=== PATIENT | male | born 1965 | race African-American/Black ===

== ENCOUNTER 2018-11-22 14:25 | Emergency (ER) | payer MEDICAID ==
[2018-11-22] MEDS ORDERED: KETOROLAC TROMETHAMINE INJ/PF 30 MG/1 ML SDV IM ONE (15:25)
--- NOTE | 2018-11-22 15:31 | ER Document Report ---
ED Extremity Problem, Lower - General Chief Complaint: Foot Pain Stated Complaint: FOOT PAIN Time Seen by Provider: 11/22/18 15:20 TRAVEL OUTSIDE OF THE [place] IN LAST 30 DAYS: No - HPI Notes: Patient is a 53-year-old male that presents to the emergency department for chief complaint of right foot pain. Patient reports he had amputation of his right fifth digit a few months ago. After his surgery he sustained a fracture in his right midfoot. He was placed in a walking boot. Patient states that he ran out of his Percocet and is here for a refill. He is from [place] and will be in [place] for 10 more days. He denies new injury or trauma to his foot. He denies any redness wounds fevers or chills. Patient states the pain is sharp pain located over the dorsal midfoot where his fracture is. He is not sure exactly what his fracture is. He has been using a cane with his walking boot. He states the pain is only slightly improved with [id number] pain medication and rest. He reports sharp pain when he is trying to ambulate. Past Medical History: Diabetes Past Surgical History: Right fifth toe amputation Social History: Daily tobacco. Denies drugs and alcohol Family History: Reviewed and noncontributory for presenting illness Allergies: Reviewed, see documented allergy list. REVIEW OF SYSTEMS: CONSTITUTIONAL : No fever No chills No diaphoresis No recent illness EENT: No vision changes No congestion No sore throat CARDIOVASCULAR: No chest pain No palpitations RESPIRATORY: No shortness of breath No cough No difficulty breathing GASTROINTESTINAL: No abdominal pain No nausea No vomiting No diarrhea GENITOURINARY: No dysuria No hematuria No difficulty urinating MUSCULOSKELETAL: No back pain Right foot pain No arm pain SKIN: No rashes No lesions LYMPHATIC: No swollen, enlarged glands. NEUROLOGICAL: No lightheadedness No headache No weakness No paresthesias PSYCHIATRIC: No anxiety No depression PHYSICAL EXAMINATION: Vital signs reviewed, nursing noted reviewed. GENERAL: Well-appearing, well-nourished and in no acute distress. HEAD: Atraumatic, normocephalic. EYES: Eyes appear normal, extraocular movements intact, sclera anicteric, conjunctiva are normal. ENT: nares patent, oropharynx clear without exudates. Moist mucous membranes. NECK: Normal range of motion, supple without lymphadenopathy LUNGS: Breath sounds clear to auscultation bilaterally and equal. No wheezes rales or rhonchi. HEART: Regular rate and rhythm without murmurs ABDOMEN: Soft, nontender, normoactive bowel sounds. No rebound, guarding, or rigidity. No masses appreciated. EXTREMITIES: Tenderness over right third and fourth metatarsal with mild right foot edema, no erythema, crepitus or [place]. Well-healed postop scar over right fifth toe amputation site with no wound dehiscence or drainage, good range of motion, NEUROLOGICAL: No focal neurological deficits. Moves all extremities spontaneously Motor and sensory grossly intact on exam. Normal gait PSYCH: Normal mood, normal affect. SKIN: Warm, Dry, normal turgor, no rashes or lesions noted on exposed skin - Related Data Allergies/Adverse Reactions: Penicillins Allergy (Verified 11/22/18 14:38) Past Medical History - Social History Smoking Status: Current Every Day Smoker Chew tobacco use (# tins/day): No Frequency of alcohol use: None Drug Abuse: None Family History: Reviewed & Not Pertinent Patient has suicidal ideation: No Patient has homicidal ideation: No - Past Medical History Cardiac Medical History: Denies: Hx Coronary Artery Disease, Hx Heart Attack Endocrine Medical History: Reports: Hx Diabetes Mellitus Type 2 Renal/ Medical History: Denies: Hx Peritoneal Dialysis - Immunizations Hx Diphtheria, Pertussis, Tetanus Vaccination: Yes Physical Exam - Vital signs Vitals: Temp Pulse Resp BP Pulse Ox 97.6 F 83 16 120/81 100 11/22/18 14:39 11/22/18 14:39 11/22/18 14:39 11/22/18 14:39 11/22/18 14:39 Course - Re-evaluation Re-evalutation: 11/22/18 15:28 Vitals reviewed. Nursing notes reviewed. Patient afebrile and nontoxic. He has no warmth or erythema to his foot to suggest an acute infection. Patient was recommended to get an x-ray of the right foot to evaluate for a new acute fracture. Patient was told that I would not be able to refill his Percocet prescription for a chronic ongoing issue. After being told that he would not be receiving a refill of Percocet patient has declined any further workup. He states he is only here for a refill of pain medications. He did drive himself to the emergency room therefore I cannot administer any Percocet to him in the ED. He will be given a shot of Toradol for pain control. Patient was advised to call his primary care in [place] who has been managing his chronic right foot issues. He was advised on symptoms to return to the emergency room if he is wanting further workup. He is stable at discharge. - Vital Signs Vital signs: Temp Pulse Resp BP Pulse Ox 97.6 F 83 16 120/81 100 11/22/18 14:39 11/22/18 14:39 11/22/18 14:39 11/22/18 14:39 11/22/18 14:39 Discharge - Discharge Clinical Impression: Right foot pain Condition: Stable Disposition: HOME, SELF-CARE Instructions: Foot Fracture ([facility]) Additional Instructions: Please return to the emergency department if you have any worsening, or concern of your symptoms. Please return to the emergency department if you develop chest pain, difficulty breathing, severe abdominal pain, or ongoing vomiting. If prescribed, take all medications as directed. If you have any questions or concerns do not hesitate to return the emergency department for evaluation. Call your primary care provider to discuss continuation of your chronic pain medications and follow-up with them as needed Return to the emergency room if you have any fevers, chills, increased redness, swelling, warmth, or pain in the right foot Referrals: [facility] [Provider Group] - Follow up as needed
[2018-11-22 16:07] VITALS: BP 122/84
== END 2018-11-22 16:09 | disposition home or self-care (01) ==
LOC: ER 14:25
DX: M79.671 Pain in right foot (principal); Z89.421 Acquired absence of other right toe(s); E11.9 Type 2 diabetes mellitus without complications; F17.200 Nicotine dependence, unspecified, uncomplicated; Z88.0 Allergy status to penicillin
CPT/HCPCS: 99283; 96372; J1885